=== PATIENT | female | born 1980 | race Caucasian/White ===

== ENCOUNTER 2019-08-10 12:41 | Emergency (ER) | payer MEDICAID ==
[~2019-08-10] VITALS: Ht 162.6 cm; Wt 81.6 kg
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
[2019-08-10] MEDS ORDERED: LIDOCAINE 1%-EPI 1:100,000 20 ML VIAL ONE (12:55)
[2019-08-10] MEDS ORDERED: TDAP [DIPH/PERTUSSIS/TET] 0.5 ML VIAL IM ONE ×2 (13:00→13:03)
--- NOTE | 2019-08-10 13:25 | NUR ---
OPERATIONS EXPERT AT BEDSIDE FOR XRAY.
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
--- NOTE | 2019-08-10 13:30 | NUR ---
PATIENT REFUSED CT SCAN. MD MATHIS
[2019-08-10 15:25] VITALS: BP 133/96
--- NOTE | 2019-08-10 15:25 | NUR ---
PATIENT AMBULATORY WITH STEADY GAIT. NO NAUSEA AND VOMITING. Patient discharged to home in stable condition. Written and verbal after care instructions given. Patient verbalizes understanding of instruction.
[2019-08-10] MEDS ORDERED: CEPHALEXIN MONOHYDRATE 500 MG CAPSULE PO ONE ×2 (15:27→15:30)
== END 2019-08-10 15:28 | disposition home or self-care (01) ==
LOC: ER 12:45
DX: S01.01XA Laceration without foreign body of scalp, initial encounter (principal); S60.011A Contusion of right thumb without damage to nail, initial encounter; I10 Essential (primary) hypertension; Y08.89XA Assault by other specified means, initial encounter; Y93.89 Activity, other specified; Y92.89 Other specified places as the place of occurrence of the external cause; Y99.8 Other external cause status
CPT/HCPCS: 12002; 29130; 73140; 84703; 90471; 90715; 99284; A6403 ×2; J3490

== ENCOUNTER 2019-08-14 12:27 | Emergency (ER) | payer MEDICAID ==
[~2019-08-14] VITALS: Ht 160 cm; Wt 65.8 kg
[2019-08-14 12:30] VITALS: BP 125/81
--- NOTE | 2019-08-14 12:50 | NUR ---
PER MD, NOT READY TO BE REMOVED, NEED TO COME BACK A FEW DAYS LATER.
== END 2019-08-14 12:57 | disposition home or self-care (01) ==
LOC: ER 12:27
DX: S01.01XD Laceration without foreign body of scalp, subsequent encounter (principal); I10 Essential (primary) hypertension; W19.XXXD Unspecified fall, subsequent encounter

== ENCOUNTER 2019-08-17 15:46 | Emergency (ER) | payer MEDICAID ==
[~2019-08-17] VITALS: Ht 160 cm; Wt 65.8 kg
[2019-08-17 15:49] VITALS: BP 135/78
== END 2019-08-17 16:10 | disposition home or self-care (01) ==
LOC: ER 15:49
DX: S01.01XD Laceration without foreign body of scalp, subsequent encounter (principal); I10 Essential (primary) hypertension; F17.200 Nicotine dependence, unspecified, uncomplicated; W18.39XD Other fall on same level, subsequent encounter

== ENCOUNTER 2023-11-05 04:00 | Emergency (ER) | payer MEDICAID ==
[~2023-11-05] VITALS: Ht 162.6 cm; Wt 83.9 kg
[2023-11-05] MEDS ORDERED: KETOROLAC TROMETHAMINE INJ 30 MG/ML VIAL ONE (04:38)
[2023-11-05] MEDS: KETOROLAC TROMETHAMINE INJ 30 MG/ML VIAL IV ONE (04:51)
[2023-11-05 04:57] LABS: BASOPHILS # (AUTO) 0.1 K/uL (0.0-0.2); BASOPHILS % (AUTO) 0.7 % (0.0-2.0); EOSINOPHILS # (AUTO) 0.3 K/uL (0.0-0.7); EOSINOPHILS % (AUTO) 2.3 % (0.0-6.0); HEMATOCRIT 45 % (33-45); HEMOGLOBIN 14.1 g/dL (11.5-14.8); LYMPHOCYTES # (AUTO) 3.9 K/uL (0.8-4.8); LYMPHOCYTES % (AUTO) 26.1 % (20.0-44.0); MEAN CORPUSCULAR HEMOGLOBIN 30 PG (26.0-33.0); MEAN CORPUSCULAR HGB CONC 32 g/dl (31.0-36.0); MEAN CORPUSCULAR VOLUME 96 fL (82-100); MONOCYTES # (AUTO) 0.9 K/uL (0.1-1.30); MONOCYTES % (AUTO) 5.8 % (2.0-12.0); NEUTROPHILS # (AUTO) 9.7 K/uL (1.8-8.9); NEUTROPHILS % (AUTO) 65.1 % (43.0-81.0); PLATELET COUNT (AUTO) 340 K/uL (150-450); RED BLOOD CELL COUNT(AUTO) 4.66 MIL/uL (4.0-5.2)
[2023-11-05] MEDS ORDERED: ONDANSETRON HCL/PF 4 MG/2 ML VIAL ONE (05:04)
[2023-11-05] MEDS ORDERED: MORPHINE SULFATE INJ 4 MG/ML DISP.SYRIN ONE (05:04)
[2023-11-05] MEDS: ONDANSETRON HCL/PF - ER 4 MG/2 ML VIAL IV ONE (05:05)
[2023-11-05] MEDS: MORPHINE SULFATE INJ 2 MG/ML DISP.SYRIN IV ONE (05:05)
[2023-11-05 05:20] LABS: CALCIUM, SERUM 8.8 mg/dL (8.5-10.1); CARBON DIOXIDE 17 mmol/L (21-32); CHLORIDE 105 mmol/L (98-107); CREATININE 0.9 mg/dL (0.6-1.3); GLUCOSE 146 mg/dL (74-106); POTASSIUM 3.5 mmol/L (3.5-5.1); SODIUM SERUM 137 mmol/L (136-145); UREA NITROGEN, BLOOD 19 mg/dL (7-18)
[2023-11-05 05:26] LABS: ALANINE AMINOTRANSFERASE 29 U/L (12-78); ALBUMIN 3.1 g/dL (3.4-5.0); ALKALINE PHOSPHATASE 67 U/L (46-116); ASPARTATE AMINOTRANSFERASE 16 U/L (15-37); BILIRUBIN,TOTAL 0.2 mg/dL (0.2-1.0); TOTAL PROTEIN, SERUM 7.3 g/dL (6.4-8.2)
[2023-11-05 05:28] LABS: LACTIC ACID 2.8 mmol/L (0.4-2.0)
[2023-11-05] MEDS ORDERED: CLONIDINE HCL 0.1 MG TABLET ONE (05:50)
[2023-11-05] MEDS: CLONIDINE HCL 0.1 MG TABLET PO ONE (05:50)
[2023-11-05] MEDS: IV NS 0.9% 1,000 ML IV ONE ×2 (05:51)
[2023-11-05] MEDS: LABETALOL 20 MG/4 ML VIAL IV ONE (06:00)
[2023-11-05] MEDS ORDERED: LEVETIRACETAM (500MG) 500 MG/5 ML VIAL IV ONE (06:07)
[2023-11-05] MEDS: LEVETIRACETAM (500MG) 1,000 MG in IV NS 0.9% 90 ML IV STA (06:09)
[2023-11-05] MEDS ORDERED: NICARDIPINE IN DEXTROSE,ISO-OS 200 ML IV ONE (06:32)
[2023-11-05] MEDS: NICARDIPINE IN NACL, ISO-OSM 200 ML IV PRN (06:47)
[2023-11-05] MEDS ORDERED: IOHEXOL-350 100 ML VIAL IV ONE (07:06)
[2023-11-05] MEDS ORDERED: CT SWABBABLE VALVE TRANS SET 1 EA INFUS.SET MC ONE (07:06)
[2023-11-05] MEDS ORDERED: IV NS 0.9% 250 ML IV ONE (07:07)
[2023-11-05 07:08] LABS: APPEARANCE,URINE CLEAR (CLEAR); BILIRUBIN,URINE NEGATIVE (NEGATIVE); BLOOD, URINE 1+ Ery/uL (NEGATIVE); COLOR,URINE YELLOW (YELLOW); KETONES,URINE TRACE mg/dL (NEGATIVE); LEUKOCYTE ESTERASE ,URINE NEGATIVE (NEGATIVE); NITRITE, URINE NEGATIVE (NEGATIVE); PROTEIN,URINE 3+ mg/dl (NEGATIVE); UGLUCOSE TRACE mg/dL (NEGATIVE); UROBILINOGEN,URINE 0.2 EU/dL (0.2)
[2023-11-05 07:12] LABS: PREGNANCY TEST URINE QUAL NEGATIVE (NEGATIVE)
[2023-11-05 07:23] LABS: AMPHETAMINE, URINE NEGATIVE (NEGATIVE); BARBITURATE, URINE NEGATIVE (NEGATIVE); BENZODIAZEPINE, URINE NEGATIVE (NEGATIVE); CANNABINOID, URINE NEGATIVE (NEGATIVE); COCCAINE, URINE NEGATIVE (NEGATIVE); PHENCYCLIDINE SCREEN,URINE NEGATIVE (NEGATIVE)
[2023-11-05 07:33] LABS: ADD URINE CULTURE NO; BACTERIA,URINE Few /HPF (None Seen); MUCUS,URINE Many /LPF (None Seen); WBC,URINE NONE SEEN /HPF (0-3)
[2023-11-05 07:39] LABS: OPIATE, URINE POSITIVE (NEGATIVE)
[2023-11-05 08:51] LABS: INR 0.92 (0.91-1.10); PARTIAL THROMBOPLASTIN TIME 24.3 SEC (24.3-34.3); PROTHROMBIN TIME 9.8 SECS (9.2-11.1)
[2023-11-05 09:02] LABS: LACTIC ACID REFLEX 3.2 mmol/L (0.4-1.9)
[2023-11-05 12:43] VITALS: TEMP 98.8
[2023-11-05 12:49] VITALS: BP 127/80; O2SAT 98
[2023-11-05] MEDS ORDERED: MORPHINE SULFATE INJ 2 MG/ML DISP.SYRIN IV ONE (13:00)
== END 2023-11-05 12:51 | disposition home or self-care (01) ==
LOC: ER 04:05
DX: I60.9 Nontraumatic subarachnoid hemorrhage, unspecified (principal); I10 Essential (primary) hypertension; F17.200 Nicotine dependence, unspecified, uncomplicated; R53.1 Weakness; Z91.148 Patient's other noncompliance with medication regimen for other reason
CPT/HCPCS: 99291; 96365; 96375; 93005; 70450; 70496; 82248; 85025; 87040; 83605 ×2; 84703; 85610; 85730; 81001; 36415; 80053; 84484; 80320; 80307; J2270; J1885; J2405 ×2; J7030 ×3; J7050; A4223 ×2; J1953 ×2; J3490; Q9967; G0480